=== PATIENT | male | born 1930 | race Caucasian/White ===

== ENCOUNTER → 2016-11-23 | Outpatient (REF) | payer MEDICARE ==
[2016-11-23 16:48] LABS: BASOPHILS % (AUTO) 1 % (0-2); EOSINOPHILS # (AUTO) 0.7 10^3uL; EOSINOPHILS % (AUTO) 9 % (0-4); LYMPHOCYTES # (AUTO) 2.1 X10^3; MEAN CORPUSCULAR HEMOGLOBIN 29.5 PG (26.0-34.0); MEAN CORPUSCULAR VOLUME 89 FL (80-100); MEAN PLATELET VOLUME 10.7 FL (6.0-9.5); MONOCYTES # (AUTO) 1.1 X10^3; MONOCYTES % (AUTO) 13 % (3-11); NEUTROPHILS # (AUTO) 4.7 X10^3; NEUTROPHILS % (AUTO) 54 % (51-67); PLATELET COUNT 173 10^3uL (150-450); WHITE BLOOD COUNT 8.72 10^3uL (4.0-11.0)
[2016-11-23 17:01] LABS: BILIRUBIN,URINE Negative (Negative); CLARITY,URINE Clear; COLOR,URINE Yellow; GLUCOSE, URINE (UA) Negative (Negative); LEUKOCYTE ESTERASE ,URINE Negative (Negative); PH,URINE 6.5 (5.0 - 8.0); UROBILINOGEN,URINE 0.2 mg/dL (0.2-1.0)
[2016-11-23 17:04] LABS: ANION GAP 16.7 MEQ/L (3-15); CALCULATED IONIZED CALCIUM 4.1 mg/dL (3.8-4.6); TOTAL PROTEIN 6.9 g/dL (6.4-8.5)
== END ==
LOC: LAB 15:30
PROVIDERS: ATTEND Physician Assistant Surgical
DX: I10 Essential (primary) hypertension (principal)
CPT/HCPCS: 80053; 81003; 84443; 85025

== ENCOUNTER → 2017-01-23 | Outpatient (CLI) | payer MEDICARE | LOC: RAD 09:55 | PROVIDERS: ATTEND Family Medicine | DX: Z96.652 Presence of left artificial knee joint (principal) | CPT/HCPCS: 73560 ==